=== PATIENT | female | born 2000 | race Two or more races ===

== ENCOUNTER 2023-05-03 17:40 | Emergency (ER) | payer BC, OTHER ==
[~2023-05-03] VITALS: Ht 154.9 cm; Wt 58.6 kg
[2023-05-03 18:32] LABS: Urine Bacteria NONE SEEN /hpf (None Seen); Urine Blood 2+ /uL (Negative); Urine Mucus FEW (None Seen); Urine Specific Gravity 1.027 (1.001-1.035); Urine WBC 620 /hpf (0 - 5); Urine WBC Clumps PRESENT /hpf (None Seen)
[2023-05-03 18:38] LABS: Basophils # (auto) 0 10 ^3/uL (0-0.2); Basophils % (auto) 0.2 % (0.0-2.0); Eosinophils # (auto) 0 10 ^3/uL (0-0.8); Eosinophils % (auto) 0.2 % (0.0-7.0); Hematocrit 39.3 % (36.0-46.0); Hemoglobin 12.8 g/dL (12.2-16.2); Lymphocytes # (auto) 1.3 10 ^3/uL (0.4-5.4); Lymphocytes % (auto) 9.4 % (10.0-50.0); Mean Corpuscular Hemoglobin 30.3 pg (28.0-32.0); Mean Corpuscular Hgb Conc. 32.6 g/dL (32.0-36.0); Mean Corpuscular Volume 93.1 fL (80.0-100.0); Monocytes % (auto) 7.7 % (0.0-12.0); Neutrophils # (auto) 11.1 10 ^3/uL (1.6-8.6); Neutrophils % (auto) 82.5 % (37.0-80.0); Red Blood Cells 4.23 10^6/uL (4.0-5.20); Red Cell Distribution Width 13.1 % (11.8-14.3); White Blood Cell 13.5 10^3/uL (4.4-10.8)
[2023-05-03 18:52] LABS: Calcium 9.2 mg/dL (8.5-10.1); Potassium 4.6 mmol/L (3.5-5.1)
[2023-05-03 19:03] LABS: BUN/Creatinine Ratio 12.9 (10.0-20.0); Bilirubin, Total 0.6 mg/dL (0.2-1.0); Total Protein 7.8 g/dL (6.4-8.2)
[2023-05-03] MEDS ORDERED: cefTRIAXone SOD 1,000 MG VL IM ONE (20:00)
[2023-05-03] MEDS ORDERED: CIPR-173 PO (20:11)
[2023-05-03] MEDS ORDERED: ZOFR4T PO (20:11)
[2023-05-03] MEDS ORDERED: ACET500T58 PO (20:11)
[2023-05-03] MEDS ORDERED: IBUP-1455 PO (20:11)
[2023-05-03] MEDS ORDERED: CIPROFLOXACIN HCL 500 MG TAB PO ONE (20:15)
[2023-05-03 20:38] VITALS: BP 98/63
== END 2023-05-03 21:00 | disposition home or self-care (01) ==
LOC: ER 17:40
DX: N12 Tubulo-interstitial nephritis, not specified as acute or chronic (principal)
CPT/HCPCS: 36415; 80053; 81001; 81025; 85025; 96372; 99283; J0696